=== PATIENT | male | born 1955 | race American Indian/Alaskan Native ===

== ENCOUNTER 2018-11-05 16:56 | Emergency (ER) | payer MEDICAID ==
--- NOTE | 2018-11-05 18:00 | Emergency Department Report ---
Blank Doc - Documentation Documentation: pt states he has hematuria with clots that began today never had before no abd pain no N/V/D no fever denies difficulty urinating +frequency PMHx HTN, BPH, spinal stenosis +smoker occ drinker no drug
[2018-11-05 19:00] LABS: Bacteria,Urine 2+ /HPF (Negative); Bilirubin,Urine NEG (Negative); Blood,Urine LG (Negative); Color,Urine Amber (Yellow); Urobilinogen,Urine < 2.0 mg/dL (<2.0)
[2018-11-05 19:01] LABS: WBC,Urine > 182.0 /HPF (0.0-6.0)
[2018-11-05 19:02] LABS: Basophils % (Auto) 0.6 % (0.0-1.8); Eosinophils # (Auto) 0.1 K/mm3 (0.0-0.4); Eosinophils % (Auto) 1.9 % (0.0-4.3); Hematocrit 41.9 % (35.5-45.6); Hemoglobin 14.6 gm/dl (11.8-15.2); Lymphocytes # (Auto) 1.5 K/mm3 (1.2-5.4); Mean Corpuscular HGB Conc 35 % (32-34); Mean Corpuscular Volume 99 fl (84-94); Monocytes # (Auto) 0.6 K/mm3 (0.0-0.8); Monocytes % (Auto) 8.7 % (0.0-7.3); Platelet Count 192 K/mm3 (140-440); Red Blood Count 4.22 M/mm3 (3.65-5.03); Red Cell Distribution Width 15.2 % (13.2-15.2)
[2018-11-05 19:15] LABS: INR 1.06 (0.87-1.13)
[2018-11-05 19:21] LABS: BUN/Creatinine Ratio 8; Blood Urea Nitrogen 6 mg/dL (9-20); Calcium 9.4 mg/dL (8.4-10.2); Hemolysis Index 21
--- NOTE | 2018-11-05 20:12 | Emergency Department Report ---
ED Male HPI - General Chief complaint: Urogenital-Male Stated complaint: PASSING BLOOD THROUGH URINE Time Seen by Provider: 11/05/18 17:58 Source: patient Mode of arrival: Ambulatory Limitations: No Limitations - History of Present Illness Initial comments: Stick 3-year-old -[place] male with past medical history hypertension and prostate issues comes in today for hematuria that started this morning. Patient also admits to stinging at the bottom of his abdomen when he attempts to void. Patient admits to urinary frequency. The patient reports that he is followed by [facility]. Patient denies any history of any kidney stones. Patient denies any pain. Quality: burning Consistency: intermittent Improves with: none Worsens with: urination blood in urine. denies: swelling, mass, fever, nausea/vomiting - Related Data Previous Rx's Medication Instructions Recorded Last Taken Type Ciprofloxacin HCl [Ciprofloxacin 500 mg PO Q12HR 10 Days #20 tab 11/05/18 Unknown Rx TAB] Allergies Allergy/AdvReac Type Severity Reaction Status Date / Time No Known Allergies Allergy Unverified 11/05/18 17:02 ED Review of Systems ROS: Stated complaint: PASSING BLOOD THROUGH URINE Other details as noted in HPI Comment: All other systems reviewed and negative Constitutional: denies: chills, fever Cardiovascular: denies: chest pain, palpitations Endocrine: no symptoms reported Gastrointestinal: denies: abdominal pain, nausea, diarrhea Genitourinary: hematuria Musculoskeletal: denies: back pain, joint swelling, arthralgia Skin: denies: rash, lesions Neurological: denies: headache, weakness, paresthesias Psychiatric: denies: anxiety, depression Hematological/Lymphatic: denies: easy bleeding, easy bruising ED Past Medical Hx - Past Medical History Hx Hypertension: Yes Additional medical history: spinal stenosis - Surgical History Additional Surgical History: back surgery - Social History Smoking Status: Current Every Day Smoker Substance Use Type: Alcohol - Medications Home Medications: Home Medications Medication Instructions Recorded Confirmed Last Taken Type Ciprofloxacin HCl [Ciprofloxacin 500 mg PO Q12HR 10 Days #20 tab 11/05/18 Unknown Rx TAB] ED Physical Exam - General Limitations: No Limitations General appearance: alert, in no apparent distress - Head Head exam: Present: atraumatic, normocephalic - Eye Eye exam: Present: normal appearance - ENT ENT exam: Present: mucous membranes moist - Neck Neck exam: Present: normal inspection, full ROM - Respiratory Respiratory exam: Present: normal lung sounds bilaterally. Absent: respiratory distress - Cardiovascular Cardiovascular Exam: Present: regular rate, normal rhythm. Absent: systolic murmur, diastolic murmur, rubs, gallop - GI/Abdominal GI/Abdominal exam: Present: soft, normal bowel sounds. Absent: tenderness - Extremities Exam Extremities exam: Present: full ROM - Back Exam Back exam: Present: normal inspection - Neurological Exam Neurological exam: Present: alert, oriented X3 - Psychiatric Psychiatric exam: Present: normal affect, normal mood - Skin Skin exam: Present: warm, dry, intact, normal color. Absent: rash ED Course Vital Signs 11/05/18 17:59 Temperature 98.8 F Pulse Rate 86 Respiratory 18 Rate Blood Pressure 168/104 [Right] O2 Sat by Pulse 98 Oximetry ED Medical Decision Making - Lab Data Result diagrams: 11/05/18 18:47 11/05/18 18:47 - Medical Decision Making Patient has been evaluated by this provider and a CBC. He is a 63-year-old male comes in for hematuria. It was noted that his urinalysis had greater than 182 WBCs. Patient does admit to a history of prostate hypertropia. He shouldn't is getting an IV with fluids and Levaquin. Patient be discharged home on Cipro. Critical care attestation.: If time is entered above; I have spent that time in minutes in the direct care of this critically ill patient, excluding procedure time. ED Disposition Clinical Impression: Hematuria Qualifiers: Hematuria type: unspecified type Qualified Code(s): R31.9 - Hematuria, unspecified Urinary tract infection Qualifiers: Urinary tract infection type: acute cystitis Hematuria presence: with hematuria Qualified Code(s): N30.01 - Acute cystitis with hematuria Disposition: TO HOME OR SELFCARE Is pt being admited?: No Does the pt Need Aspirin: No Condition: Stable Instructions: Acute Hematuria (ED), Urinary Tract Infection in Men (ED) Additional Instructions: Complete antibiotics as prescribed. Increase her water intake is very important to follow-up with her primary care provider. I'm also referring him to a urologist. Please follow up with them as well. Prescriptions: Ciprofloxacin HCl [Ciprofloxacin TAB] 500 mg PO Q12HR 10 Days #20 tab Referrals: BISHNU MCGOWAN MD [Primary Care Provider] - 3-5 Days [facility] [Outside] - 3-5 Days ANDRE SMYTH MD [Staff Physician] - 3-5 Days
[2018-11-06] MEDS ORDERED: NACL 0.9% 1000 ML 1,000 ML IV ONE (00:17)
[2018-11-06] MEDS ORDERED: LEVAQUIN 500MG/100ML 500 MG/100 ML BAG IV ONE (00:17)
[2018-11-06 02:15] VITALS: BP 152/88
== END 2018-11-06 01:40 | disposition home or self-care (01) ==
LOC: ED 16:56
DX: N30.01 Acute cystitis with hematuria (principal); I10 Essential (primary) hypertension; F17.200 Nicotine dependence, unspecified, uncomplicated
CPT/HCPCS: 36415; 80048; 81001; 85025; 85610; 85730; 96365; 99283; J1956; J7030